=== PATIENT | male | born 1945 | race Caucasian/White ===

== ENCOUNTER → 2023-11-20 08:11 | Outpatient (REF) | payer OTHER, SELFPAY ==
[2023-11-20 10:14] LABS: % Basophils 0.2 % (0-2); % Eosinophils 2.3 % (0-6); % Lymphocytes 14.9 % (20.5-51.1); % Monocytes 12.5 % (1.7-9.3); % Neutrophils 70.1 % (42.2-75.2); Absolute Eosinophils 0.1 10^3/uL (0-0.7); Absolute Lymphocytes 0.7 10^3/uL (1.2-3.4); Absolute Monocytes 0.6 10^3/uL (0.1-0.6); Absolute Neutrophils 3.3 10^3/uL (1.4-6.5); Hematocrit 38.1 % (39.0-52.0); Hemoglobin 13.1 g/dL (13.0-18.0); Mean Corp Hgb Conc. 34.4 g/dL (33.0-37.0); Mean Corpuscular Hgb 30.8 pg (27.0-31.0); Mean Corpuscular Volume 89.6 fL (80.0-94.0); Mean Platelet Volume 10.4 fL (7.4-10.4); Nucleated Red Blood Cells % 0 % (-); Platelet Count 279 10^3/uL (130-400); Red Blood Cell Count 4.25 10^6/uL (4.70-6.10); Red Cell Dist. Width 12.3 % (11.5-14.5); White Blood Cell Count 4.7 10^3/uL (4.8-10.8)
[2023-11-20 10:24] LABS: ALT (SGPT) 31 U/L (0-50); AST (SGOT) 41 U/L (17-59); Albumin 4.7 g/dl (3.5-5.0); Alkaline Phosphatase 87 U/L (38-126); Blood Urea Nitrogen 12 mg/dl (9-20); Calcium 9.5 mg/dl (8.4-10.2); Carbon Dioxide 24 mmol/L (22-30); Chloride 103 mmol/L (98-107); Glucose 112 mg/dl (70-99); HDL Cholesterol 53 mg/dl; LDL Cholesterol, Calculated 77 mg/dl; Sodium 134 mmol/L (135-145); Total Bilirubin 1.1 mg/dl (0.2-1.3); Total Cholesterol 154 mg/dl (50-199); Total Protein 7.7 g/dl (6.3-8.2); Triglyceride 123 mg/dl (10-149); Very Low Density Lipoprotein 24 mg/dl (0-30); eGFR > 60.00
[2023-11-20 10:56] LABS: Urine Albumin Negative (Neg - Trace); Urine Bilirubin Negative (Negative); Urine Character Clear (Clear); Urine Color Yellow; Urine Glucose Negative (Negative); Urine Ketone Negative (Negative); Urine Leukocyte Negative (Negative); Urine Nitrite Negative (Negative); Urine Occult Blood Negative (Negative); Urine Specific Gravity 1.015 (<1.030); Urine Urobilinogen Negative (Neg - 1+)
== END ==
LOC: REG 08:11
PROVIDERS: ATTENDING PHYSICIAN Internal Medicine Geriatric Medicine
DX: M25.562 Pain in left knee (principal); M62.830 Muscle spasm of back; I10 Essential (primary) hypertension; E78.2 Mixed hyperlipidemia; K21.9 Gastro-esophageal reflux disease without esophagitis; R11.0 Nausea; J30.0 Vasomotor rhinitis; L30.9 Dermatitis, unspecified; Z20.822 Contact with and (suspected) exposure to COVID-19; Z13.31 Encounter for screening for depression
CPT/HCPCS: 36415; 80053; 80061; 81003; 85025

== ENCOUNTER → 2024-03-23 06:24 | Day surgery (SDC) | payer OTHER, SELFPAY | LOC: GI 06:24 | PROVIDERS: ATTENDING PHYSICIAN Internal Medicine Gastroenterology; FAMILY PHYSICIAN Internal Medicine Geriatric Medicine | DX: D12.0 Benign neoplasm of cecum (principal); K63.5 Polyp of colon; K57.30 Diverticulosis of large intestine without perforation or abscess without bleeding; K64.8 Other hemorrhoids; Z86.010 Personal history of colon polyps | CPT/HCPCS: 45385; 45380; 88305 ==

== ENCOUNTER → 2024-05-09 11:04 | Outpatient (REF) | payer OTHER, SELFPAY ==
[2024-05-09 12:38] LABS: PSA, Total - Diagnostic 4.88 ng/ml (0.0-4.0)
== END ==
LOC: REG 11:04
PROVIDERS: ATTENDING PHYSICIAN Specialist; FAMILY PHYSICIAN Internal Medicine Geriatric Medicine
DX: R97.20 Elevated prostate specific antigen [PSA] (principal)
CPT/HCPCS: 36415; 84153

== ENCOUNTER → 2024-11-30 08:44 | Outpatient (REF) | payer OTHER, SELFPAY ==
[2024-11-30 09:54] LABS: % Basophils 0.4 % (0-2); % Eosinophils 1.9 % (0-6); % Immature Granulocytes 0.4 % (0-0.5); % Monocytes 10.5 % (1.7-9.3); % Neutrophils 73.8 % (42.2-75.2); Absolute Eosinophils 0.1 10^3/uL (0-0.7); Absolute Lymphocytes 0.7 10^3/uL (1.2-3.4); Absolute Monocytes 0.6 10^3/uL (0.1-0.6); Absolute Neutrophils 4.2 10^3/uL (1.4-6.5); Hematocrit 37.6 % (39.0-52.0); Hemoglobin 12.8 g/dL (13.0-18.0); Mean Corpuscular Hgb 30.2 pg (27.0-31.0); Mean Corpuscular Volume 88.7 fL (80.0-94.0); Mean Platelet Volume 10.6 fL (7.4-10.4); Nucleated Red Blood Cells % 0 % (-); Platelet Count 284 10^3/uL (130-400); Red Blood Cell Count 4.24 10^6/uL (4.70-6.10); Red Cell Dist. Width 12.5 % (11.5-14.5); White Blood Cell Count 5.7 10^3/uL (4.8-10.8)
[2024-11-30 10:55] LABS: ALT (SGPT) 30 U/L (0-50); AST (SGOT) 37 U/L (17-59); Alkaline Phosphatase 79 U/L (38-126); Blood Urea Nitrogen 11 mg/dl (9-20); Calcium 9.5 mg/dl (8.4-10.2); Carbon Dioxide 24 mmol/L (22-30); Chloride 97 mmol/L (98-107); Glucose 110 mg/dl (70-99); HDL Cholesterol 52 mg/dl; LDL Cholesterol, Calculated 79 mg/dl; Potassium 4.4 mmol/L (3.5-5.1); Sodium 135 mmol/L (135-145); Total Bilirubin 1.2 mg/dl (0.2-1.3); Total Cholesterol 148 mg/dl (50-199); Total Protein 7.8 g/dl (6.3-8.2); Triglyceride 87 mg/dl (10-149); Very Low Density Lipoprotein 17 mg/dl (0-30); eGFR > 60.00
[2024-11-30 10:56] LABS: Urine Albumin Negative (Neg - Trace); Urine Bilirubin Negative (Negative); Urine Character Clear (Clear); Urine Color Yellow; Urine Glucose Negative (Negative); Urine Ketone Negative (Negative); Urine Leukocyte Negative (Negative); Urine Nitrite Negative (Negative); Urine Occult Blood Negative (Negative); Urine Specific Gravity 1.015 (<1.030); Urine Urobilinogen Negative (Neg - 1+)
[2024-11-30 11:06] LABS: Vitamin D, 25-OH*** 36.3 ng/mL (30-80)
[2024-11-30 11:19] LABS: PSA, Total - Screen 5.06 ng/ml (0.0-4.0); TSH 2.72 uIU/ml (0.47-4.68)
== END ==
LOC: REG 08:44
PROVIDERS: ATTENDING PHYSICIAN Internal Medicine Geriatric Medicine
DX: E78.2 Mixed hyperlipidemia (principal); I10 Essential (primary) hypertension; R97.20 Elevated prostate specific antigen [PSA]; N40.1 Benign prostatic hyperplasia with lower urinary tract symptoms; Z79.899 Other long term (current) drug therapy; Z00.00 Encounter for general adult medical examination without abnormal findings
CPT/HCPCS: 36415; 80053; 80061; 81003; 82306; 84443; 85025; G0103

== ENCOUNTER → 2025-06-13 14:30 | Outpatient (REF) | payer OTHER, SELFPAY ==
[2025-06-13 15:49] LABS: Urine Character Cloudy (Clear)
[2025-06-13 16:30] LABS: Urine Squamous Cell 0-2 /LPF (Few)
[2025-06-13 16:31] LABS: Urine White Cell 60-70 /HPF (0-5)
== END ==
LOC: REG 14:30
PROVIDERS: ATTENDING PHYSICIAN Specialist; FAMILY PHYSICIAN Internal Medicine Geriatric Medicine
DX: R30.0 Dysuria (principal)
CPT/HCPCS: 81003; 81015; 87077; 87086; 87186

== ENCOUNTER 2025-06-16 12:50 | Emergency (ER) | payer OTHER, SELFPAY ==
[2025-06-16 12:53] VITALS: BP 170/100
[2025-06-16 13:19] LABS: Hematocrit 32.8 % (39.0-52.0); Hemoglobin 11.6 g/dL (13.0-18.0); Mean Corp Hgb Conc. 35.4 g/dL (33.0-37.0); Mean Corpuscular Volume 85.6 fL (80.0-94.0); Nucleated Red Blood Cells % 0 % (-); Platelet Count 285 10^3/uL (130-400); Red Cell Dist. Width 12.1 % (11.5-14.5)
[2025-06-16 13:34] LABS: ALT (SGPT) 25 U/L (0-50); AST (SGOT) 32 U/L (17-59); Albumin 4.7 g/dl (3.5-5.0); Alkaline Phosphatase 60 U/L (38-126); Blood Urea Nitrogen 11 mg/dl (9-20); Calcium 9.3 mg/dl (8.4-10.2); Carbon Dioxide 23 mmol/L (22-30); Chloride 100 mmol/L (98-107); Glucose 110 mg/dl (70-99); Potassium 4.3 mmol/L (3.5-5.1); Sodium 130 mmol/L (135-145); Total Protein 7.7 g/dl (6.3-8.2); eGFR > 60.00
[2025-06-16 13:46] LABS: Troponin I < 0.012 ng/ml
[2025-06-16 14:10] LABS: TSH 2.23 uIU/ml (0.47-4.68)
[2025-06-16 16:09] VITALS: BP 162/91
--- NOTE | 2025-06-16 16:20 | ED.GENMED ---
History of Present Illness
General
Chief Complaint: Heart Rate Problem
Time Seen by Provider: 06/16/25 16:02
History of Present Illness
History of Present Illness:
80-year-old male presents to the emergency department for evaluation of occasional palpitations and irregular heartbeats for the past 2 days. He began taking Cipro for a UTI earlier in the week, was prescribed 500 mg twice daily by his urologist.
He states the symptoms are seemingly unprovoked, began this morning while he was seated at his dining room table. Denies any associated chest pain or dyspnea. No fevers or chills.
Past History
Past History
ED Past Medical History: GERD, HTN, Hypercholesterolemia, Other (Osteoarthritis, BPH, spinal stenosis, right upper lobe lung abscess 2009) and Other (anemia, diverticulosis)
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
Social History
Tobacco: Former smoker (Quit 2006)
Alcohol: Occasional
Personal:
Living: alone
Employment: Retired
Family History
Family History: Diabetes and CAD
Review of Systems
Review of Systems
Allergies reviewed?: Yes
All Other Systems: ROS reviewed and negative except as documented in HPI and ROS
Phy Exam
Physical Exam
Physical Exam:
GEN: Well appearing, NAD, WDWN
HEENT: Oral mucosa moist, no scleral icterus
Cardiac: Regular rate
Lung: No respiratory distress, no tachypnea
MSK: No gross deformity or injuries
Skin: Good color, no pallor or jaundice, no rashes
Neuro: AO x3, moves all extremities freely
Psych: Calm, cooperative
Course
Orders/Labs/Results
Orders:
Orders
06/16/25 12:56
Electrocardiogram (*1) Urgent
Reason for Study: Chest Pain
06/16/25 12:57
EKG- Treatment ONCE
06/16/25 13:07
Complete Blood Count/With Diff Urgent
Comprehensive Metabolic Panel Urgent
Magnesium Urgent
Comment: ADD ON
TSH Urgent
Troponin I Urgent
06/16/25 16:20
Add On- LAB Urgent
Tests Added?: magnesium
06/16/25 17:53
Cephalexin Monohydrate [Keflex] 1,000 mg PO NOW STA
Abnormal Lab Results
06/16/25
13:07
RBC 3.83 L 10^6/uL
(4.70-6.10)
Hgb 11.6 L g/dL
(13.0-18.0)
Hct 32.8 L %
(39.0-52.0)
Absolute Lymphs (auto) 0.6 L 10^3/uL
(1.2-3.4)
Lymphocytes % 11.8 L %
(20.5-51.1)
Monocytes % 10.8 H %
(1.7-9.3)
Sodium 130 L mmol/L
(135-145)
Creatinine 0.6 L mg/dL
(0.7-1.3)
Glucose 110 H mg/dl
(70-99)
06/16/25 13:07
06/16/25 13:07
Vital Signs
Initial and Last Documented VS:
Initial Vital Signs
Temp Pulse Resp BP Pulse Ox
97.8 F 82 18 170/100 96
06/16/25 12:53 06/16/25 12:53 06/16/25 12:53 06/16/25 12:53 06/16/25 12:53
Last Documented Vital Signs
Temp Pulse Resp BP Pulse Ox
97.8 F 70 21 167/86 95
06/16/25 12:53 06/16/25 17:30 06/16/25 17:30 06/16/25 17:00 06/16/25 17:30
MDM/Problems Addressed
MDM/Problems Addressed:
No detectable cardiac dysrhythmias while in the emergency department, QT interval is normal thus I do not have a suspicion for lethal ventricular arrhythmias from QT prolongation in the setting of Cipro use. Nevertheless the patient is concerned
about his symptoms and is apprehensive about taking further Cipro thus we will switch to cephalexin based on prior culture report, options are limited given the patient's penicillin allergy and use of an ARB making Bactrim high risk for causing
hyperkalemia
Comment
Comment:
EKG independently interpreted by me shows normal sinus rhythm with no ST changes concerning for ischemia, QTc interval is 435
*Pulse Oximetry
SaO2: 95
Oxygen Mode of Delivery: Room air
Patient hypoxic: no
*Critical Care Note
Total Time (30-74mins, 75-104mins- exclusive of procedures): Not Applicable
ED Attending Note
-
Portions of this chart may have been created with voice recognition software.� Occasional wrong word or��sound alike� substitutions may have occurred due to the inherent limitations of voice recognition software.
Discharge Plan
Departure
Patient Disposition: Home (Routine Discharge)
Date of Disposition: 06/16/25
Time of Disposition: 17:52
Patient with high blood pressure during this ER visit?: No
Discharge Problem:
Heart palpitations
Instructions: Palpitations (DC)
Prescriptions:
New
cephalexin 500 mg capsule
500 mg PO BID 6 Days Qty: 12 0RF
No Action
pantoprazole 40 MG tablet,delayed release (DR/EC)
40 mg PO BID
lovastatin 20 MG tablet
20 mg PO DAILY
Centrum Silver Men 1 EACH tablet
1 ea PO DAILY
fexofenadine 180 mg Tablet
180 mg PO DAILY PRN (Reason: allergies)
dutasteride-tamsulosin 0.5-0.4 mg Capsule, Er Multiphase 24 Hr
1 cap PO DAILY
mupirocin 2 % ointment
1 applic topical BID Qty: 1 0RF
Patient Comments:
patient applied to b/l nares 07/30/22 0600, has been applying bid to b/l nares since 07/27/22
aspirin 325 mg Tablet,Delayed Release (Dr/Ec)
325 mg PO DAILY Qty: 28 0RF
Rx Instructions:
Take daily x4 weeks for blood clot prevention.
docusate sodium 100 mg Capsule
100 mg PO BID Qty: 30 0RF
meloxicam 15 mg Tablet
15 mg PO DAILY Qty: 14 0RF
Rx Instructions:
Take daily with food.
Do not take within 2 hours of Aspirin post-surgery.
sennosides [senna] 8.6 mg Tablet
17.2 mg PO BID Qty: 30 0RF
tramadol 50 mg tablet
50 mg PO Q6H PRN (Reason: moderate-severe pain) Qty: 30 0RF
Rx Instructions:
1 tab for moderate pain, 2 if severe.
Dx total joint. Ongoing therapy.
ondansetron HCl 4 mg tablet
4 mg PO Q6H PRN (Reason: nausea and vomiting) Qty: 20 0RF
Rx Instructions:
Take 1/2 hour prior to Tramadol if experiencing recurrent nausea.
baclofen 10 mg tablet
10 mg PO HS PRN (Reason: muscle spasms) Qty: 7 0RF
Rx Instructions:
Caution with Tramadol - can cause drowsiness.
acetaminophen 650 mg Tablet Extended Release
650 mg PO Q4H Qty: 30 0RF
Rx Instructions:
DO NOT exceed >4000 mg daily.
irbesartan 150 mg Tablet
37.5 - 50 mg PO HS Qty: 1 0RF
Rx Instructions:
PT TAKES 1/2-1/3 OF TABLET NIGHTLY
HOLD if systolic blood pressure <130 while on Tramadol.
Activity Restrictions/Additional Instructions:
Stop the cipro
Interventions
Interventions:
*Risk Screen - Suicide Last Done: 06/16/25 12:53
*General Assessment Last Done: 06/16/25 12:53
*Neglect/Abuse Screening Last Done: 06/16/25 18:05
*ED- Fall Risk Assessment Last Done: 06/16/25 18:05
*ED COVID-19 Vaccine History Last Done: 06/16/25 12:53
*Nursing Disposition Last Done: 06/16/25 18:03
ED- Cardiac Assessment Last Done: 06/16/25 16:39
ED- Pulmonary Assessment Last Done: 06/16/25 16:39
Discharge Date and Time
Print Language: TELUGU
[2025-06-16 16:38] VITALS: BMI 33.2
[2025-06-16 17:00] VITALS: BP 167/86
[2025-06-16 17:22] LABS: Magnesium 1.8 mg/dl (1.6-2.3)
[2025-06-16] MEDS: KEFLEX 1000 MG PO (17:59)
== END 2025-06-16 18:03 | disposition home or self-care (01) ==
LOC: EMR 12:50
PROVIDERS: Emergency Medicine; EMERGENCY PHYSICIAN Emergency Medicine
DX: R00.2 Palpitations (principal); I49.9 Cardiac arrhythmia, unspecified; K21.9 Gastro-esophageal reflux disease without esophagitis; I10 Essential (primary) hypertension; E78.00 Pure hypercholesterolemia, unspecified; M19.90 Unspecified osteoarthritis, unspecified site; N40.0 Benign prostatic hyperplasia without lower urinary tract symptoms; Z82.49 Family history of ischemic heart disease and other diseases of the circulatory system; Z83.3 Family history of diabetes mellitus; Z87.440 Personal history of urinary (tract) infections; Z87.891 Personal history of nicotine dependence; Z88.0 Allergy status to penicillin; Z96.642 Presence of left artificial hip joint; Z96.651 Presence of right artificial knee joint
CPT/HCPCS: 99283; 80053; 83735; 84443; 84484; 85025; 93005

== ENCOUNTER → 2025-06-25 17:04 | Outpatient (REF) | payer OTHER, SELFPAY ==
[2025-06-25 17:50] LABS: Urine Character Cloudy (Clear)
[2025-06-25 18:12] LABS: Urine Squamous Cell 0-2 /LPF (Few)
[2025-06-25 18:13] LABS: Urine White Cell 50-60 /HPF (0-5)
== END ==
LOC: REG 17:04
PROVIDERS: ATTENDING PHYSICIAN Specialist; FAMILY PHYSICIAN Internal Medicine Geriatric Medicine
DX: N30.20 Other chronic cystitis without hematuria (principal)
CPT/HCPCS: 81003; 81015; 87077; 87086; 87186

== ENCOUNTER → 2025-07-02 10:53 | Outpatient (REF) | payer OTHER, SELFPAY | LOC: HWRAD 10:53 | PROVIDERS: ATTENDING PHYSICIAN Specialist; FAMILY PHYSICIAN Internal Medicine Geriatric Medicine | DX: N30.00 Acute cystitis without hematuria (principal) | CPT/HCPCS: 74176 ==

== ENCOUNTER 2025-07-23 20:46 | Inpatient (IN) | payer OTHER, SELFPAY ==
[2025-07-23 14:06] VITALS: BP 162/84
[2025-07-23 16:20] LABS: Urine Character Clear (Clear)
[2025-07-23 16:41] LABS: Urine Squamous Cell 16-20 /LPF (Few)
[2025-07-23 16:43] LABS: Urine Red Blood Cell 0-2 /HPF (0-2); Urine White Cell 0-2 /HPF (0-5)
--- NOTE | 2025-07-23 17:27 | ED.GENMED ---
History of Present Illness
<ESMER Cummings Jr. Last Filed: 07/23/25 19:55>
General
Chief Complaint: Dizziness
Source: patient and family
Exam Limitations: none
Time Seen by Provider: 07/23/25 17:11
Nursing documentation reviewed up to this point in time: agreed with
History of Present Illness
History of Present Illness:
80-year-old male presenting to the emergency department today with concerns of lightheadedness. He claims that he has been battling with a UTI over the past month. He was on 3 different antibiotics and is currently on Methenamine, was previously
on ciprofloxacin and Bactrim. Today he had an episode where he felt lightheaded and has felt generally weak and tired. He does note to have drank a large amount of water recently concerned that he could be dehydrated.
Past History
<ESMER Cummings Jr. Last Filed: 07/23/25 19:55>
Past History
ED Past Medical History: GERD, HTN, Hypercholesterolemia, Other (Osteoarthritis, BPH, spinal stenosis, right upper lobe lung abscess 2009) and Other (anemia, diverticulosis)
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
Social History
Tobacco: Former smoker (Quit 2006)
Alcohol: Occasional
Personal:
Living: alone
Employment: Retired
Family History
Family History: Diabetes and CAD
Review of Systems
<ESMER Cummings Jr. Last Filed: 07/23/25 19:55>
Review of Systems
Allergies reviewed?: Yes
All Other Systems: ROS reviewed and negative except as documented in HPI and ROS
Phy Exam
<ESMER Cummings Jr. Last Filed: 07/23/25 19:55>
Physical Exam
Physical Exam:
GENERAL: Alert , in no apparent distress
EYE: pupils equal and reactive
NECK: Supple, no significant adenopathy.
ENT: o/p clr, mmm.
CARDIAC: Regular rate and rhythm .
LUNGS: Clear breath sounds bilaterally, no acute respiratory distress, no wheezes/rales/rhonchi
ABDOMEN: Soft, without focal tenderness, no r/g, no cvat
NEUROLOGICAL: Alert and oriented, no focal neuro deficits
SKIN: Warm and dry, skin intact.
MUSCULOSKELETAL: No edema, well perfused.
PSYCH: Normal and appropriate interaction.
Course
<Blair Butler Jr., PA-C - Last Filed: 07/23/25 19:55>
Orders/Labs/Results
Orders:
Orders
07/23/25 14:09
Electrocardiogram (*1) Urgent
Reason for Study: Vertigo / Dizzy
EKG- Treatment ONCE
07/23/25 16:09
Urinalysis Reflex To Culture Urgent
Date Specimen was Collected: 07/23/25
Time Specimen was Collected: 14:09
Urine Microscopic Reflex Cult Urgent
Urine Culture Urgent
YARELI Source: U
Specimen Description:
Date Specimen was Collected: 07/23/25
Time Specimen was Collected: 14:09
07/23/25 18:10
Complete Blood Count/With Diff Urgent
TSH Reflex To Free T4 Urgent
07/23/25 19:15
Comprehensive Metabolic Panel Urgent
Lipase Urgent
Abnormal Lab Results
07/23/25 07/23/25 07/23/25
16:09 18:10 19:15
RBC 3.67 L 10^6/uL
(4.70-6.10)
Hgb 11.0 L g/dL
(13.0-18.0)
Hct 31.1 L %
(39.0-52.0)
MPV 10.5 H fL
(7.4-10.4)
Absolute Lymphs (auto) 0.9 L 10^3/uL
(1.2-3.4)
Absolute Monos (auto) 0.7 H 10^3/uL
(0.1-0.6)
Neutrophils % 75.3 H %
(42.2-75.2)
Lymphocytes % 12.9 L %
(20.5-51.1)
Monocytes % 10.2 H %
(1.7-9.3)
Sodium 123 L mmol/L
(135-145)
Chloride 90 L mmol/L
(98-107)
Creatinine 0.5 L mg/dL
(0.7-1.3)
Glucose 101 H mg/dl
(70-99)
Urine Bacteria (Reflex) Moderate A
(Negative)
Urine Albumin (Reflex) 1+ A
(Neg - Trace)
07/23/25 18:10
07/23/25 19:15
Vital Signs
Initial and Last Documented VS:
Initial Vital Signs
Temp Pulse Resp BP Pulse Ox
97.7 F 74 18 162/84 96
07/23/25 14:06 07/23/25 14:06 07/23/25 14:06 07/23/25 14:06 07/23/25 14:06
Last Documented Vital Signs
Temp Pulse Resp BP Pulse Ox
97.7 F 64 24 154/74 96
07/23/25 14:06 07/23/25 18:06 07/23/25 18:06 07/23/25 18:06 07/23/25 17:32
<Nik Tavarez, DO - Last Filed: 07/23/25 19:51>
Orders/Labs/Results
Orders:
Orders
07/23/25 14:09
Electrocardiogram (*1) Urgent
Reason for Study: Vertigo / Dizzy
EKG- Treatment ONCE
07/23/25 16:09
Urinalysis Reflex To Culture Urgent
Date Specimen was Collected: 07/23/25
Time Specimen was Collected: 14:09
Urine Microscopic Reflex Cult Urgent
Urine Culture Urgent
YARELI Source: U
Specimen Description:
Date Specimen was Collected: 07/23/25
Time Specimen was Collected: 14:09
07/23/25 18:10
Complete Blood Count/With Diff Urgent
TSH Reflex To Free T4 Urgent
07/23/25 19:15
Comprehensive Metabolic Panel Urgent
Lipase Urgent
Abnormal Lab Results
07/23/25 07/23/25 07/23/25
16:09 18:10 19:15
RBC 3.67 L 10^6/uL
(4.70-6.10)
Hgb 11.0 L g/dL
(13.0-18.0)
Hct 31.1 L %
(39.0-52.0)
MPV 10.5 H fL
(7.4-10.4)
Absolute Lymphs (auto) 0.9 L 10^3/uL
(1.2-3.4)
Absolute Monos (auto) 0.7 H 10^3/uL
(0.1-0.6)
Neutrophils % 75.3 H %
(42.2-75.2)
Lymphocytes % 12.9 L %
(20.5-51.1)
Monocytes % 10.2 H %
(1.7-9.3)
Sodium 123 L mmol/L
(135-145)
Chloride 90 L mmol/L
(98-107)
Creatinine 0.5 L mg/dL
(0.7-1.3)
Glucose 101 H mg/dl
(70-99)
Urine Bacteria (Reflex) Moderate A
(Negative)
Urine Albumin (Reflex) 1+ A
(Neg - Trace)
07/23/25 18:10
07/23/25 19:15
Vital Signs
Initial and Last Documented VS:
Initial Vital Signs
Temp Pulse Resp BP Pulse Ox
97.7 F 74 18 162/84 96
07/23/25 14:06 07/23/25 14:06 07/23/25 14:06 07/23/25 14:06 07/23/25 14:06
Last Documented Vital Signs
Temp Pulse Resp BP Pulse Ox
97.7 F 64 24 154/74 96
07/23/25 14:06 07/23/25 18:06 07/23/25 18:06 07/23/25 18:06 07/23/25 17:32
<Blair Butler Jr., PA-C - Last Filed: 07/23/25 19:55>
MDM/Problems Addressed
MDM/Problems Addressed:
81-year-old male presenting to the emergency department today with concerns of lightheadedness generalized weakness. He was concerned that he could be dehydrated recently and has been drinking large amount of water. Also recently has been treated
for UTI multiple times in the last month. Here vital signs are normal on arrival patient no obvious distress. Sodium level is 123 and chloride level of 90. Patient with potential symptomatic hyponatremia. Plan to admit for monitoring and
reassessment.
<Blair Butler Jr., PA-C - Last Filed: 07/23/25 19:55>
*Pulse Oximetry
SaO2: 96
Oxygen Mode of Delivery: Room air
Patient hypoxic: no (96)
*Critical Care Note
Total Time (30-74mins, 75-104mins- exclusive of procedures): Not Applicable
ED Attending Note
<Blair Butler Jr., PA-C - Last Filed: 07/23/25 19:55>
-
Portions of this chart may have been created with voice recognition software.� Occasional wrong word or��sound alike� substitutions may have occurred due to the inherent limitations of voice recognition software.
<Nik Tavarez, DO - Last Filed: 07/23/25 19:51>
ED Attending Note
Patient seen and examined by attending physician: Yes
I performed the substantive portion of visit, reviewed & personally made and approve the management plan that is documented in note by myself or SARAH.: Yes
ED Attending Note:
I have seen and evaluated the patient with a [id number] encounter. I have spoken to the advance practicer provider and involved in the medical history, the physical exam, medical decision making.
Evaluation and management service: agree unless noted differently below.
Results interpretation: agree unless noted differently below.
Focused HPI: 80-year-old male presenting with generalized weakness and fatigue. Patient does acknowledge that he thought he could be dehydrated so he has been drinking significant amounts of water
Physical exam: Sitting in bed comfortably. No acute distress. Moist mucous membranes
Medical Decision Making: Patient found to have hyponatremia which could be the cause of his symptoms. Patient will likely need some sort of water restriction. Will admit for further evaluation given that he is somewhat subdued
Discharge Plan
Departure
Patient Disposition: Admit
Date of Disposition: 07/23/25
Time of Disposition: 19:54
Admit to: Med/Surg
Admit to doctor: Eddie
Presentation/result/management discussed w/ accepting MD/DO: Hospitalist
Patient with high blood pressure during this ER visit?: No
Condition: Good
Covid-19: Not Applicable
Discharge Problem:
Acute hyponatremia
Prescriptions:
No Action
pantoprazole 40 MG tablet,delayed release (DR/EC)
40 mg PO BID
lovastatin 20 MG tablet
20 mg PO DAILY
Centrum Silver Men 1 EACH tablet
1 ea PO DAILY
fexofenadine 180 mg Tablet
180 mg PO DAILY PRN (Reason: allergies)
dutasteride-tamsulosin 0.5-0.4 mg Capsule, Er Multiphase 24 Hr
1 cap PO DAILY
mupirocin 2 % ointment
1 applic topical BID Qty: 1 0RF
Patient Comments:
patient applied to b/l nares 07/30/22 0600, has been applying bid to b/l nares since 07/27/22
aspirin 325 mg Tablet,Delayed Release (Dr/Ec)
325 mg PO DAILY Qty: 28 0RF
Rx Instructions:
Take daily x4 weeks for blood clot prevention.
docusate sodium 100 mg Capsule
100 mg PO BID Qty: 30 0RF
meloxicam 15 mg Tablet
15 mg PO DAILY Qty: 14 0RF
Rx Instructions:
Take daily with food.
Do not take within 2 hours of Aspirin post-surgery.
sennosides [senna] 8.6 mg Tablet
17.2 mg PO BID Qty: 30 0RF
tramadol 50 mg tablet
50 mg PO Q6H PRN (Reason: moderate-severe pain) Qty: 30 0RF
Rx Instructions:
1 tab for moderate pain, 2 if severe.
Dx total joint. Ongoing therapy.
ondansetron HCl 4 mg tablet
4 mg PO Q6H PRN (Reason: nausea and vomiting) Qty: 20 0RF
Rx Instructions:
Take 1/2 hour prior to Tramadol if experiencing recurrent nausea.
baclofen 10 mg tablet
10 mg PO HS PRN (Reason: muscle spasms) Qty: 7 0RF
Rx Instructions:
Caution with Tramadol - can cause drowsiness.
acetaminophen 650 mg Tablet Extended Release
650 mg PO Q4H Qty: 30 0RF
Rx Instructions:
DO NOT exceed >4000 mg daily.
irbesartan 150 mg Tablet
37.5 - 50 mg PO HS Qty: 1 0RF
Rx Instructions:
PT TAKES 1/2-1/3 OF TABLET NIGHTLY
HOLD if systolic blood pressure <130 while on Tramadol.
cephalexin 500 mg capsule
500 mg PO BID 6 Days Qty: 12 0RF
Referrals:
Bladimir Dickson MD [Family Provider, Internal Medicine]
Interventions
Interventions:
*Risk Screen - Suicide Last Done: 07/23/25 14:06
*General Assessment Last Done: 07/23/25 14:06
*ED- Fall Risk Assessment Last Done: 07/23/25 18:07
*ED COVID-19 Vaccine History Last Done: 07/23/25 18:07
*ED Influenza Vaccine History Last Done: 07/23/25 18:07
ED- Neurological Assessment Last Done: 07/23/25 18:07
ED- Cardiac Assessment Last Done: 07/23/25 18:07
ED Swallowing Screen Last Done: 07/23/25 18:07
Discharge Date and Time
Print Language: HEBREW
[2025-07-23 17:52] VITALS: BMI 33.3
[2025-07-23 17:54] VITALS: BP 158/75
[2025-07-23 18:06] VITALS: BP 154/74
[2025-07-23 18:31] LABS: Hematocrit 31.1 % (39.0-52.0); Hemoglobin 11.0 g/dL (13.0-18.0); Mean Corp Hgb Conc. 35.4 g/dL (33.0-37.0); Mean Corpuscular Volume 84.7 fL (80.0-94.0); Nucleated Red Blood Cells % 0 % (-); Red Cell Dist. Width 11.9 % (11.5-14.5)
[2025-07-23 19:17] LABS: Platelet Count 229 10^3/uL (130-400)
[2025-07-23 19:39] LABS: ALT (SGPT) 35 U/L (0-50); AST (SGOT) 41 U/L (17-59); Albumin 4.7 g/dl (3.5-5.0); Alkaline Phosphatase 64 U/L (38-126); Blood Urea Nitrogen 9 mg/dl (9-20); Calcium 9.6 mg/dl (8.4-10.2); Carbon Dioxide 28 mmol/L (22-30); Chloride 90 mmol/L (98-107); Estimated Creatinine Clearance 112 ml/min; Glucose 101 mg/dl (70-99); Lipase 193 U/L (23-300); Potassium 4.5 mmol/L (3.5-5.1); Sodium 123 mmol/L (135-145); Total Protein 7.8 g/dl (6.3-8.2); eGFR > 60.00
--- NOTE | 2025-07-23 19:56 | HPS.HSE ---
Addendum entered and electronically signed by Alberto Chan MD 07/23/25 21:38:
This is an addendum to H&P written by Nicole Connell on 07/23/2025. �Patient seen and examined independently with [employer].
80-year-old male past medical history of advanced primary osteoarthritis of left knee status post total knee arthroplasty, hypertension, GERD, BPH, hyperlipidemia, chronic anemia presenting with lightheadedness, fatigue and weakness and feeling off
balance. �He has been suffering with UTI for the past month and has been on 3 different antibiotic which he completed 3 days ago and was placed on hippurate. �He feels fatigue and tired. �He was drinking significant amount of fluids while on the
antibiotic up to 64 ounces per day but 3 days ago he he has been back to drinking less with decreased urine output.
He has some residual urinary pressure.
He did have loose stools while on the antibiotic and yesterday he had more significant watery diarrhea. �No diarrhea today.
Vital signs show blood pressure 162/84. �Sodium 123 from 130 previously. �Hemoglobin stable at 11.
Urinalysis appears clear.
Patient with symptomatic worsening of chronic hyponatremia secondary to likely polydipsia.
Check urine sodium, osmolality, TSH. �Fluid restriction 40 ounces. �Check orthostatic vital signs. �If no improvement with fluid restriction, will require hypertonic saline.
Original Note:
Family Physician
-
Family Physician: Bladimir Dickson
Chief Complaint
-
lightheaded
off balance.
History of Present Illness
80-year-old male with PMH for GERD, HTN, HLD, BPH, spinal stenosis, lung abscess presenting to the emergency department today with concerns of lightheadedness for past few days. he felt weak, tired and off balance. he finished the course of Bactrim
on 07/18 and started methenamine on 07/19. since then, he stools were loose. he had an episode of diarrhea as well. he is still with pressure while urinating. he was drinking drinking 64oz of water while taking abx but for past 3 days he cut down on
how much he was drinking and using the table salt. denied CASAS, or syncope. denied blurry vision, numbness and tingling. denied fever, chills, cough, congestion, chest pain, sob. denied abdominal pain,n,v. denied dysuria or hematuria.
upon arrival he was noted hyponatremia. admitting for further management.
Medical History
Past Medical History
Past Medical History: Reports Other
Additional Past Medical History:
HTN
stomach ulcer
spinal stenosis
arthirtis
BPH
gallstone pancratitis
Past Surgical History: Reports Other
Additional Past Surgical History:
gastrotomy
hernia repair
left knee replacement
cataract extraction
cholecystectomy
right knee replacement
Social History
Tobacco: Former Smoker
Alcohol: Occasional
Drug: None
Family History
Family History: Not pertinent
Allergies / Home Medications
Allergies reflects when Allergies were last updated in [facility].
Home Medications with original date entered in [facility]
Allergy/Medication List:
Allergies
Allergy/AdvReac Type Severity Reaction Status Date / Time
aspirin (From [employer]) Allergy PREFERS Verified 07/23/25 14:08
HIM TO NOT
TAKE DUE
TO GI
ISSUES
carisoprodol Allergy PASSED OUT Verified 07/23/25 14:08
chlorzoxazone Allergy PASSED OUT Verified 07/23/25 14:08
Penicillins Allergy Rash Verified 07/23/25 14:08
sulfite Allergy Unknown Verified 07/23/25 14:08
Home Medications
lovastatin 20 mg tablet 20 mg PO DAILY High cholesterol 03/17/14
pantoprazole 40 mg tablet,delayed release 40 mg PO BID Gastrointestinal issue 03/17/14
dutasteride 0.5 mg-tamsulosin ER 0.4 mg capsule ext.release 24hr mphas 1 cap PO DAILY Urinary issue 07/10/22
irbesartan 150 mg tablet 37.5 - 50 mg (0.25 - 0.3333 x 150 mg) PO HS Blood pressure #1 tab 07/31/22
sennosides 8.6 mg tablet (senna) 17.2 mg (2 x 8.6 mg) PO BID #30 tabs 07/31/22
Review of Systems
-
Constitutional: Reports No Symptoms
EENT: Reports No Symptoms
Respiratory: Reports No Symptoms
Cardiac: Reports No Symptoms
Abdomen/GI: Reports No Symptoms
: Reports No Symptoms
Musculoskeletal: Reports No Symptoms
Skin: Reports No Symptoms
Neurological: Reports Dizzy and Weakness
Endocrine: Reports No Symptoms
Hematologic/Lymphatic: Reports No Symptoms
Psych: Reports No Symptoms
Physical Exam
Vital Signs
Vital Signs
Temp Pulse Resp BP Pulse Ox
97.7 F 64 24 154/74 96
07/23/25 14:06 07/23/25 18:06 07/23/25 18:06 07/23/25 18:06 07/23/25 17:32
Physical Exam
General: Well Developed, Well Nourished and No Apparent Distress
HEENT: NormoCephalic, Moist mucous membranes and Atraumatic
Respiratory: Clear
Cardiac: S1/S2 and Regular Rhythm; No Murmur or Rub
GI: Soft, Non Tender, Non Distended and Normal Bowel Sounds; No Organomegaly
Rectal: Deferred by Provider
Musculoskeletal: No Clubbing, No Cyanosis and No Edema
Skin: No Rash
Neuro: AO x 3 and Nonfocal/grossly intact
Psych: Calm
Laboratory Results
-
07/23/25 18:10
07/23/25 19:15
Laboratory Results
Total Bilirubin 1.1 mg/dl (0.2-1.3) 07/23/25 19:15
AST 41 U/L (17-59) 07/23/25 19:15
ALT 35 U/L (0-50) 07/23/25 19:15
Alkaline Phosphatase 64 U/L (38-126) 07/23/25 19:15
Lipase 193 U/L (23-300) 07/23/25 19:15
Data Reviewed
-
Lab Data: Labs Reviewed by me
Impression/Plan
-
#symptomatic hyponatremia likely due to excessively fluid intake
-na 123
-fluid restriction
-obtain Urine for na, osmolality, serum osmolality
-BMP in am
-TSH with t4 in am
-orthosatics, PT/OT consult
#anemia of chronic disease
-hgb stable at 11.0, no active bleeding
-ctm
# Benign prostatic hypertrophy
-Continue dutasteride Flomax.
#Gastroesophageal reflux disease. Continue PPI.
# Essential hypertension
-BP stable, antihypertensive continued
# Hyperlipidemia.
-statin continued
# Ex-smoker.
# DVT prophylaxis
-lovenox
#FULL CODE
[2025-07-23 20:00] VITALS: BP 160/93
[2025-07-23 21:30] VITALS: BP 159/76; BMI 33.5
[2025-07-23] MEDS: AVAPRO 150 MG PO (22:56)
[2025-07-23] MEDS: HIPREX 1 GRAM PO (22:56)
[2025-07-23] MEDS: NEURONTIN 100 MG PO (22:56)
[2025-07-23] MEDS: MELATONIN 5 MG PO (22:57)
[2025-07-23] MEDS: TYLENOL 650 MG PO (22:58)
[2025-07-23 23:00] VITALS: BP 145/68
--- NOTE | 2025-07-24 01:13 | TRANSFER ---
Pt transferred to 3W from ED via wheelchair. Pt stood, and walked to hospital bed with single point cane from home. Pt AAOx3, oriented to room, call sebastian within reach, plan of care ongoing.
[2025-07-24 05:43] LABS: Hematocrit 30.3 % (39.0-52.0); Hemoglobin 10.5 g/dL (13.0-18.0); Mean Corp Hgb Conc. 34.7 g/dL (33.0-37.0); Mean Corpuscular Volume 85.4 fL (80.0-94.0); Platelet Count 339 10^3/uL (130-400); Red Cell Dist. Width 11.8 % (11.5-14.5)
[2025-07-24 06:02] LABS: Blood Urea Nitrogen 9 mg/dl (9-20); Calcium 9.3 mg/dl (8.4-10.2); Carbon Dioxide 23 mmol/L (22-30); Chloride 92 mmol/L (98-107); Estimated Creatinine Clearance 109 ml/min; Glucose 86 mg/dl (70-99); Potassium 4.3 mmol/L (3.5-5.1); Sodium 124 mmol/L (135-145); eGFR > 60.00
[2025-07-24 07:00] VITALS: BP 150/66
--- NOTE | 2025-07-24 07:34 | W.PN.HOSP.TC ---
Addendum entered and electronically signed by Murray Simon MD 07/24/25 16:45:
80-year-old with lightheadedness fatigue and weakness and off balance
CVS: S1-S2 normal
Chest: CTA B/L
Abdomen: Soft, NT / Bowel sounds present
Extremities: No edema, normal pulses
# Symptomatic hyponatremia
Likely secondary to excessive fluid intake
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
3% saline as symptomatic
Normal TSH
Also bladder scan noted urine retention which could have contributed.
# Chronic anemia-hemoglobin to be monitored
# Hypertension-on irbesartan as outpatient. BP is on the low side.
# Hyperlipidemia-continue statin
# GERD/hiatal hernia-continue PPI
# Scoliosis/spinal stenosis/osteoarthritis-continue gabapentin
# Diverticulosis
# Enlarged prostate-continue dutasteride/tamsulosin. Bladder scan and straight cath
# Anxiety on lorazepam 0.5 mg 3 times daily as needed for anxiety as outpatient. May need to be slowly weaned
# History of GIST tumor surgery 2006
# Ex-smoker
# DVT prophylaxis-Lovenox
# CODE STATUS-full code
Part of this note was created using voice recognition system. Occasional wrong word or��sound alike� substitutions may have inadvertently occurred due to the inherent limitations of voice recognition software. If noted kindly bring it to my
attention for correction.
Original Note:
Today's Communication/Plan
-
3% NS 250mL infusion
Repeat BMP following infusion
Added pyridium, IV hydralazine
Assessment / Plan
Assessment / Plan
Assessment:
This is an 80 y/o male with pmhx of UTI on multiple antibiotic therapies who
Plan:
Symptomatic Hyponatremia
-Sodium 123 on admission, 124 today
-Likely 2/2 to excessive fluid intake
-Serum osmolality: 260
-Urine osmolality: 472
-Urine sodium: 89
-Continue fluid restriction
-ORDERED Pyridium for 2 days to see if this improves polyuria
-Will perform bladder scan today to ensure he is not retaining urine
-Currently on 3% NS 250mL infusion, will recheck BMP following completion to monitor hyponatremia
-Will continue to monitor BMP
Anemia of chronic disease
-Hemoglobin 11.0 on admission
-No current signs of active bleed
-Continue to monitor
Benign Prostatic Hypertrophy
-Continue Dutasteride-Tamsulosin.
Gastroesophageal reflux disease.
-Continue PPI.
Essential hypertension
-BP today increased compared to baseline reported of 120-127 systolic
-Continue Irbesartan
-ADDED PRN hydralazine for SBP >160
Hyperlipidemia.
-Continue Statin
Ex-smoker
Anticipated Discharge: 24 - 48 hours
Subjective/Interval History
-
Date of Service: July 24, 2025
Patient was sitting comfortably in his room when I arrived in his chair. He states that he had weakness, lightheadedness and dizziness prior to his admission, but these have all resolved now. His only current complaint is that he is still urinating
frequently and that he had poor sleep attributed to being in the hospital. He reports urinating 3-4 times this AM so far. He is concerned that his blood pressure is elevated, as he checks his BP at home and it is normally 120-127 systolic.
Objective Data
-
Labs:
Laboratory Results
07/23/25 07/24/25
19:15 05:11
WBC 6.2
Hgb 10.5 L
Hct 30.3 L
Plt Count 339 D
Sodium 123 L 124 L
Potassium 4.5 4.3
Chloride 90 L 92 L
Carbon Dioxide 28 23
BUN 9 9
Creatinine 0.5 L 0.5 L
Glucose 101 H 86
Calcium 9.6 9.3
Total Bilirubin 1.1
AST 41
ALT 35
Alkaline Phosphatase 64
Vital Signs:
Vital Signs
Temp Pulse Resp BP Pulse Ox
97.6 F 56 14 145/68 96
07/23/25 23:00 07/23/25 23:00 07/23/25 23:00 07/23/25 23:00 07/23/25 23:00
I&O
07/23/25 07/24/25 07/25/25
06:59 06:59 06:59
Intake Total 240 / 240
Balance 240 / 240
Review of Systems
-
History Source: Patient
Constitutional: Denies Fever, Fatigue, Chills or Weakness
Respiratory: Denies Cough or Trouble Breathing
Cardiac: Denies Chest Pain
Abdomen/GI: Denies Abdominal Pain, Nausea, Vomiting, Diarrhea or Constipated
Genitourinary: Reports Frequency
Neuro: Denies Dizzy, Headache or Weakness
Physical Exam
-
General: Well Developed, Well Nourished, No Apparent Distress and Comfortable
HEENT: Normocephalic and Atraumatic
Respiratory: Clear to Auscultation
Cardiac: Regular Rhythm and S1/S2
Skin: Warm and Dry
Neuro: Awake, Alert and Oriented
Psych: Calm
[2025-07-24] MEDS: LIPITOR 10 MG PO (08:58)
[2025-07-24] MEDS: PROTONIX 40 MG PO ×2 (08:58→21:12)
[2025-07-24] MEDS: HIPREX 1 GRAM PO ×2 (08:59→21:13)
[2025-07-24] MEDS: FLOMAX 0.4 MG PO (09:00)
[2025-07-24] MEDS: OCUVITE SOFTGEL 1 CAP PO (09:00)
[2025-07-24] MEDS: NEURONTIN 100 MG PO ×2 (09:00→21:13)
[2025-07-24] MEDS: PROSCAR 5 MG PO (09:00)
[2025-07-24] MEDS: SODIUM CHLORIDE 3% 250 IV (09:23)
[2025-07-24 10:07] VITALS: BP 145/74; PULSE 75
[2025-07-24 11:06] LABS: Cortisol, Random 12.3 ug/dl
[2025-07-24 11:53] VITALS: BMI 33.5
[2025-07-24 14:13] LABS: Blood Urea Nitrogen 9 mg/dl (9-20); Calcium 9.4 mg/dl (8.4-10.2); Carbon Dioxide 25 mmol/L (22-30); Chloride 92 mmol/L (98-107); Estimated Creatinine Clearance 109 ml/min; Glucose 94 mg/dl (70-99); Potassium 4.4 mmol/L (3.5-5.1); Sodium 125 mmol/L (135-145); eGFR > 60.00
[2025-07-24 15:00] VITALS: BP 94/48
[2025-07-24 17:21] VITALS: BP 126/72
[2025-07-24] MEDS: LOVENOX 40 MG SC (17:22)
[2025-07-24 18:26] LABS: Blood Urea Nitrogen 9 mg/dl (9-20); Calcium 9.1 mg/dl (8.4-10.2); Carbon Dioxide 25 mmol/L (22-30); Chloride 94 mmol/L (98-107); Estimated Creatinine Clearance 109 ml/min; Glucose 111 mg/dl (70-99); Potassium 4.4 mmol/L (3.5-5.1); Sodium 125 mmol/L (135-145); eGFR > 60.00
[2025-07-24 19:00] VITALS: BP 137/62
[2025-07-24] MEDS: AVAPRO 150 MG PO (21:13)
[2025-07-24 23:00] VITALS: BP 144/74
[2025-07-25] VITALS (9 sets, daily range): BP systolic 90–141; BP diastolic 56–72; PULSE 67–85; O2SAT 95
[2025-07-25 00:14] LABS: Blood Urea Nitrogen 10 mg/dl (9-20); Calcium 9.2 mg/dl (8.4-10.2); Carbon Dioxide 26 mmol/L (22-30); Chloride 94 mmol/L (98-107); Estimated Creatinine Clearance 109 ml/min; Glucose 93 mg/dl (70-99); Potassium 4.2 mmol/L (3.5-5.1); Sodium 123 mmol/L (135-145); eGFR > 60.00
[2025-07-25] MEDS: MELATONIN 5 MG PO ×2 (02:07→22:32)
[2025-07-25 06:08] LABS: Hematocrit 30.4 % (39.0-52.0); Hemoglobin 10.7 g/dL (13.0-18.0); Mean Corp Hgb Conc. 35.2 g/dL (33.0-37.0); Mean Corpuscular Volume 86.6 fL (80.0-94.0); Platelet Count 315 10^3/uL (130-400); Red Cell Dist. Width 11.9 % (11.5-14.5)
[2025-07-25 06:29] LABS: Blood Urea Nitrogen 8 mg/dl (9-20); Calcium 9.0 mg/dl (8.4-10.2); Carbon Dioxide 26 mmol/L (22-30); Chloride 96 mmol/L (98-107); Estimated Creatinine Clearance 109 ml/min; Glucose 86 mg/dl (70-99); Potassium 4.0 mmol/L (3.5-5.1); Sodium 128 mmol/L (135-145); eGFR > 60.00
--- NOTE | 2025-07-25 07:51 | W.PN.HOSP.TC ---
Addendum entered and electronically signed by Murray Simon MD 07/25/25 13:56:
80-year-old with lightheadedness fatigue and weakness and off balance
CVS: S1-S2 normal
Chest: CTA B/L
Abdomen: Soft, NT / Bowel sounds present
Extremities: No edema, normal pulses
# Symptomatic hyponatremia
Likely secondary to excessive fluid intake
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
3% saline as symptomatic
Sodium better
20 mg lasix today if not orthostatic
Normal TSH
Also bladder scan noted urine retention which could have contributed. Continue BS
# Chronic anemia-hemoglobin to be monitored
# Hypertension-on irbesartan as outpatient. BP is on the low side.
# Hyperlipidemia-continue statin
# GERD/hiatal hernia-continue PPI
# Scoliosis/spinal stenosis/osteoarthritis-continue gabapentin
# Diverticulosis
# Enlarged prostate-continue dutasteride/tamsulosin. Bladder scan and straight cath
# Anxiety on lorazepam 0.5 mg 3 times daily as needed for anxiety as outpatient. May need to be slowly weaned
# History of GIST tumor surgery 2006
# Ex-smoker
# DVT prophylaxis-Lovenox
# CODE STATUS-full code
Part of this note was created using voice recognition system. Occasional wrong word or��sound alike� substitutions may have inadvertently occurred due to the inherent limitations of voice recognition software. If noted kindly bring it to my
attention for correction.
Original Note:
Today's Communication/Plan
-
Orthostatic vital signs
Possibly Lasix based on above
Assessment / Plan
Assessment / Plan
Assessment:
This is an 80 y/o male with pmhx of UTI on multiple antibiotic therapies with dizziness and weakness who was found to have a sodium of 123 in the ED.
Plan:
Symptomatic Hyponatremia
-Sodium 123 on admission
-Likely 2/2 to excessive fluid intake
-Serum osmolality: 260
-Urine osmolality: 472
-Urine sodium: 89
-S/p 250mL 3% NS, sodium clare to 128
-Continue fluid restriction
-Continue Pyridium for 2 days total course to see if this improves polyuria
-Will obtain orthostatic vital signs today. If no orthostasis, will give 20mg IV Lasix. If BP is soft, consider 20mg PO Lasix
-Continue to monitor BMP
Anemia of chronic disease
-Hemoglobin 11.0 on admission
-No current signs of active bleed
-Continue to monitor
Benign Prostatic Hypertrophy
-Continue Dutasteride-Tamsulosin.
Gastroesophageal reflux disease.
-Continue PPI.
Essential hypertension
Dizziness- Resolved
-Continue Irbesartan
-Continue PRN hydralazine for SBP >160
-Orthostatic vital signs today
Hyperlipidemia.
-Continue Statin
Ex-smoker
Anticipated Discharge: 24 - 48 hours
Subjective/Interval History
-
Date of Service: July 25, 2025
Patient was resting on the side of his bed when I arrived. He had experienced some sensations of feeling off yesterday with hypotension, but this had resolved spontaneously with laying down. He has not had any recurrence since. He reports 3-4
urinations today so far this morning.
Objective Data
-
Labs:
Laboratory Results
07/24/25 07/25/25
23:34 05:40
WBC 7.2
Hgb 10.7 L
Hct 30.4 L
Plt Count 315
Sodium 123 L 128 L
Potassium 4.2 4.0
Chloride 94 L 96 L
Carbon Dioxide 26 26
BUN 10 8 L
Creatinine 0.6 L 0.6 L
Glucose 93 86
Calcium 9.2 9.0
Vital Signs:
Vital Signs
Temp Pulse Resp BP Pulse Ox
98.0 F 53 16 141/56 97
07/25/25 03:00 07/25/25 03:00 07/25/25 03:00 07/25/25 03:00 07/25/25 03:00
I&O
07/24/25 07/25/25 07/26/25
06:59 06:59 06:59
Intake Total 1020 / 1020
Output Total 600 / 600
Balance 420 / 420
Review of Systems
-
History Source: Patient
Constitutional: Denies Fever, Fatigue or Chills
Respiratory: Denies Cough or Trouble Breathing
Cardiac: Denies Chest Pain
Abdomen/GI: Denies Abdominal Pain, Nausea, Vomiting, Diarrhea or Constipated
Genitourinary: Reports Frequency (3-4 times this morning)
Neuro: Denies Dizzy, Headache, Weakness or Lightheadedness
Physical Exam
-
General: Well Developed, Well Nourished, No Apparent Distress and Comfortable
HEENT: Normocephalic and Atraumatic
Respiratory: Clear to Auscultation
Cardiac: Regular Rhythm and S1/S2
Skin: Warm and Dry
Neuro: Awake, Alert and Oriented
Psych: Calm
[2025-07-25] MEDS: PROSCAR 5 MG PO (08:39)
[2025-07-25] MEDS: HIPREX 1 GRAM PO ×2 (08:39→20:23)
[2025-07-25] MEDS: OCUVITE SOFTGEL 1 CAP PO (08:39)
[2025-07-25] MEDS: PROTONIX 40 MG PO ×2 (08:39→20:24)
[2025-07-25] MEDS: LIPITOR 10 MG PO (08:39)
[2025-07-25] MEDS: NEURONTIN 100 MG PO ×2 (08:39→20:24)
[2025-07-25] MEDS: FLOMAX 0.4 MG PO (08:40)
--- NOTE | 2025-07-25 14:48 | CM ---
Addendum entered by Dayana Barron 07/25/25 16:10:
IMM reviewed with patient, copy provided and signed copy placed in chart.
Rogelio is , has a female friend who is a veterinary technician assistant for him since his ; they do not live together, but enjoy each others' company.
Original Note:
SURESH met with Alexys to complete IA. He lives alone in a 2 story home with 3 entry steps through the garage. He uses a cane as needed for balance.
Alexys is anxious to return home and identifies no needs at discharge.
Plan: Discharge to home with no needs.
[2025-07-25] MEDS: TYLENOL 650 MG PO (16:47)
[2025-07-25] MEDS: LOVENOX 40 MG SC (16:48)
[2025-07-25] MEDS: AVAPRO 150 MG PO (20:25)
[2025-07-26 03:00] VITALS: BP 137/54
[2025-07-26 06:01] LABS: Hematocrit 30.7 % (39.0-52.0); Hemoglobin 10.5 g/dL (13.0-18.0); Mean Corp Hgb Conc. 34.2 g/dL (33.0-37.0); Mean Corpuscular Volume 86.7 fL (80.0-94.0); Platelet Count 313 10^3/uL (130-400); Red Cell Dist. Width 12.2 % (11.5-14.5)
[2025-07-26 06:14] LABS: Blood Urea Nitrogen 10 mg/dl (9-20); Calcium 9.3 mg/dl (8.4-10.2); Carbon Dioxide 26 mmol/L (22-30); Chloride 97 mmol/L (98-107); Estimated Creatinine Clearance 109 ml/min; Glucose 88 mg/dl (70-99); Potassium 4.1 mmol/L (3.5-5.1); Sodium 130 mmol/L (135-145); eGFR > 60.00
--- NOTE | 2025-07-26 07:16 | W.PN.HOSP.TC ---
Addendum entered and electronically signed by Murray Simon MD 07/26/25 14:50:
Patient was seen earlier and examined with the resident. Agree with plan of care formulated together, he was feeling better.
Sodium slowly improving
Exam without any abnormality
Discussed about fluid restriction and repeat sodium to be done on Wednesday.
If it is low may consider sodium chloride tablets at that time.
I called Dr. Dickson's office to get him an appointment he can be seen on Wednesday and also urology office will see him on 07/30/2025.
Patient was given prescription for lab work
I will also check his CT of the head today if normal will discharge
D/W Son and updated
D/W
D/W RN
D/W Case management
More than 30 minutes spent in discharge including
Final examination of the patient
Summarizing hospital stay
Instructions for continuing care to all relevant caregivers
Preparation of discharge records, prescriptions, and referral forms
Original Note:
Today's Communication/Plan
-
Continue fluid restriction
Discharge planning
Assessment / Plan
Assessment / Plan
Assessment:
This is an 80 y/o male with pmhx of UTI on multiple antibiotic therapies with dizziness and weakness who was found to have a sodium of 123 in the ED.
Plan:
Symptomatic Hyponatremia, Now Asymptomatic
-Sodium 123 on admission
-Likely 2/2 to excessive fluid intake
-Serum osmolality: 260
-Urine osmolality: 472
-Urine sodium: 89
-S/p 250mL 3% NS on 07/24. Sodium today has risen to 130
-Continue fluid restriction upon discharge
-Continue to monitor BMP
Anemia of chronic disease
-Hemoglobin 11.0 on admission
-No current signs of active bleed
-Continue to monitor
Benign Prostatic Hypertrophy
Urine Retention
-Continue Dutasteride-Tamsulosin.
-Patient has thus far required straight cath x2 on 07/24 and again today on 07/26. He does not meet criteria for Yun catheterization at this point, as it appears intermittent
-Will contact his urologist's office, would recommend outpatient follow up earlier than September appointment
Orthostatic Hypotension
-Orthostatic vital signs as follows:
--Laying down: 139/66
--Sittin/64
--Standin/67
-Patient with episodes of dizziness such as after working with PT
-Encouraged sitting up slowly when rising, avoiding getting up too quickly, use of compression socks at home
Gastroesophageal reflux disease.
-Continue PPI.
Essential hypertension
Dizziness- Resolved
-Continue Irbesartan
-Continue PRN hydralazine for SBP >160
Hyperlipidemia.
-Continue Statin
Ex-smoker
Anticipated Discharge: Within 24 hours
Subjective/Interval History
-
Date of Service: July 26, 2025
Patient was sitting in his chair when I arrived. He has had no further episodes of dizziness yesterday after I had spoken to him, but this morning he reports using the bathroom and then being bladder scanned afterwards and having to be straight
cath'ed. He also had to be straight cath'ed on Wednesday for retained urine. He has previously seen a urologist outpatient and has an appointment scheduled in September with plans in the future to perform a TURP.
Objective Data
-
Labs:
Laboratory Results
07/26/25
05:06
WBC 7.1
Hgb 10.5 L
Hct 30.7 L
Plt Count 313
Sodium 130 L
Potassium 4.1
Chloride 97 L
Carbon Dioxide 26
BUN 10
Creatinine 0.6 L
Glucose 88
Calcium 9.3
Vital Signs:
Vital Signs
Temp Pulse Resp BP Pulse Ox
97.6 F 52 14 137/54 97
07/26/25 03:00 07/26/25 03:00 07/26/25 03:00 07/26/25 03:00 07/26/25 03:00
I&O
07/25/25 07/26/25 07/27/25
06:59 06:59 06:59
Intake Total 1020 / 1020 1400 / 1400
Output Total 600 / 600 400 / 400
Balance 420 / 420 1000 / 1000
Review of Systems
-
History Source: Patient
Constitutional: Denies Fever or Chills
Respiratory: Denies Cough or Trouble Breathing
Cardiac: Denies Chest Pain
Abdomen/GI: Denies Abdominal Pain, Nausea, Vomiting, Diarrhea or Constipated
Neuro: Denies Dizzy, Weakness or Lightheadedness
Endocrine: Denies Polydipsia
[2025-07-26] MEDS: PROTONIX 40 MG PO (07:36)
[2025-07-26] MEDS: HIPREX 1 GRAM PO (07:36)
[2025-07-26] MEDS: FLOMAX 0.4 MG PO (07:36)
[2025-07-26] MEDS: LIPITOR 10 MG PO (07:37)
[2025-07-26] MEDS: OCUVITE SOFTGEL 1 CAP PO (07:37)
[2025-07-26] MEDS: PROSCAR 5 MG PO (07:37)
[2025-07-26] MEDS: NEURONTIN 100 MG PO (07:37)
[2025-07-26 08:10] VITALS: BP 137/68
[2025-07-26 11:09] VITALS: BP 103/57
--- NOTE | 2025-07-26 11:29 | W.DCSUMMARY ---
Discharge Summary
Discharge Data
Date of Admission: 07/23/25
Date of Discharge: 07/26/25
-
Pending Results: No
Hospital Course
Discharging Physician : Dr. Simon
Disposition : Good
Primary care physician : Dr. Dickson
Principal Discharge diagnosis : Symptomatic Hyponatremia
Chronic Discharge diagnosis :
Anemia of Chronic Disease, Benign Prostatic Hypertrophy, Urine Retention, Orthostatic Hypotension, GERD, Essential Hypertension, Hyperlipidemia
Hospital Course : This is an 80 y/o male with pmhx of essential hypertension, BPH, Hyperlipidemia, chronic anemia who presented to the ED on 07/23/2025. He had been diagnosed with a UTI 1 month ago and and had been on antibiotic therapy with 3
different antibiotics (Cipro, Bactrim). He finished these antibiotics on 07/20/2025, at which time he was started on hippurate. He had been consuming significantly more fluid than normal while on these antibiotics, and had started to feel
lightheaded, fatigued and weak.
In the ED his BP was elevated at 162/84. His sodium was 123. Urinalysis showed no sign of infection. He was admitted to the hospital on a fluid restriction, but on 07/24 his sodium had only increased to 124 so he was started on 250mL of 3% NS. He
also began to experience intermittent episodes of dizziness which were self limiting and resolved when laying down. Orthostatic vital signs revealed orthostatic hypotension. He required two episodes of straight catheterization for urinary retention,
once on 07/24 (600mL) and once on 07/26 (400mL). His sodium continued to improve with fluid restriction until it reached 130 on 07/26. CT scan of the head on that same day showed no evidence of acute intracranial abnormality.He was found to be
medically stable and discharged to home. He was instructed to follow up with his PCP in less than one week, and complete a BMP in 4-5 days. He was also encouraged to follow up with his urologist.
Important imaging findings :
Chest X-ray 07/25: No acute disease of the chest. Moderate elevation of the right hemidiaphragm. Stable
CT Chest 07/26: No evidence of acute intracranial abnormality.
Procedure findings : N/a
Discharge Plan
-
Patient Disposition: Home (Routine Discharge)
Discharge Diagnosis/Procedures: Symptomatic Hyponatremia
Anemia of Chronic Disease
Benign Prostatic Hypertrophy
Urine Retention
Orthostatic Hypotension
GERD
Essential Hypertension
Hyperlipidemia
Condition: Good
Diet: Regular and Other diet
Additional Diets: Restrict fluid intake to 40oz or 1200mL
Activity: No restrictions and As tolerated
Driving Restrictions: As prior to admission
Bathing Restrictions: None
Blood Work: BMP in 1 week
Specialty Instructions: Weigh Daily- Call MD for wt gain/loss 3 lbs overnight/5 lbs in 1 week
Activity Restrictions/Additional Instructions:
Follow-up with your primary physician for workup of weight loss. This is important.
Referrals:
Bladimir Dickson MD [Family Provider, Internal Medicine] - 07/31/25
Referral Note: You are given an appointment for Wednesday. Please call office for time
Kyle Cutler Jr., MD [Active, Urology] - 07/30/25 1:15 pm
Additional Discharge Medication Instructions: We recommend you follow up with your primary care physician in less than 1 week. Please complete a Basic Metabolic Panel on Wednesday monitor your sodium levels. Your PCP will receive the results. The
normal range of sodium is 135-145.
We recommend you follow up with your urologist sooner than your scheduled September appointment as you did experience some episodes of retaining urine during this hospitalization. Please contact their office. We will also be reaching out to their
office to recommend earlier outpatient follow up.
You may resume taking your home mediations upon discharge as noted below. We do recommend you follow up with your primary care physician about ultimately stopping Lorazepam 0.5mg as this medication may contribute to dizziness and falls.
Prescriptions:
Continued
pantoprazole 40 MG tablet,delayed release (DR/EC)
40 mg PO BID
lovastatin 20 MG tablet
20 mg PO DAILY
dutasteride-tamsulosin 0.5-0.4 mg Capsule, Er Multiphase 24 Hr
1 cap PO DAILY
methenamine hippurate 1 gram Tablet
1 g PO BID
lorazepam 0.5 mg Tablet
0.5 mg PO TIDPRN PRN (Reason: anxiety)
gabapentin 100 mg Capsule
100 mg PO BID
PreserVision AREDS 2,148 mcg-113 mg-45 mg-17.4mg Tablet
1 tab PO DAILY
sennosides [senna] 8.6 mg tablet
8.6 mg PO DAILYPRN PRN (Reason: constipation)
irbesartan 150 mg tablet
112.5 mg PO HS
Discharge Orders:
Discharge Patient (As Directed); Ordered 07/26/25
Ordered By: Murray Simon
Discharge Date and Time
Print Language: MALDIVIAN
--- NOTE | 2025-07-26 12:20 | CM ---
CM met with Alexys today; he is anxious to return home. His son will drive him home at discharge.
Therapies recommend outpatient therapy which CM discussed with him this morning. Pt is willing to go to outpatient therapy and will go to a place that is closer to home, although he acknowledges that he has been in outpatient therapy several times
and does exercise at home on a daily basis.
Plan: CM requested Rx for outpatient therapy based on recommendation of therapies. Discharge to home pending discharge order; son will transport home.
[2025-07-26] MEDS: ATIVAN 0.5 MG PO (13:51)
[2025-07-26 15:51] VITALS: BP 110/62
[2025-07-26] MEDS: FLUZONE HIGH-DOSE 2025-26 0.5 ML IM (18:05)
== END 2025-07-26 18:42 | disposition home or self-care (01) | DRG 312 ==
LOC: 3 WEST ACU 20:46
PROVIDERS: Emergency Medicine; Physician Assistant; Registered Nurse; ADMITTING PHYSICIAN Hospitalist; ATTENDING PHYSICIAN Hospitalist; EMERGENCY PHYSICIAN Student in an Organized Health Care Education/Training Program; FAMILY PHYSICIAN Internal Medicine Geriatric Medicine
PROC: 3E02340 Introduction of Influenza Vaccine into Muscle, Percutaneous Approach (ICD-10-PCS; 2025-07-26)
DX: I95.1 Orthostatic hypotension (principal); E87.1 Hypo-osmolality and hyponatremia; Z87.891 Personal history of nicotine dependence; I10 Essential (primary) hypertension; K21.9 Gastro-esophageal reflux disease without esophagitis; K57.30 Diverticulosis of large intestine without perforation or abscess without bleeding; D63.8 Anemia in other chronic diseases classified elsewhere; N40.0 Benign prostatic hyperplasia without lower urinary tract symptoms; Z23 Encounter for immunization
CPT/HCPCS: 70450; 71046; 80048; 80053; 81003; 81015; 82533; 83690; 83930; 83935; 84300; 84443; 85025; 85027; 87086; 90662; 93005; 97116; 97162; 97166; 99285; G0008

== ENCOUNTER → 2025-07-30 08:21 | Outpatient (REF) | payer OTHER, SELFPAY ==
[2025-07-30 10:09] LABS: Blood Urea Nitrogen 19 mg/dl (9-20); Calcium 9.4 mg/dl (8.4-10.2); Carbon Dioxide 25 mmol/L (22-30); Chloride 106 mmol/L (98-107); Glucose 101 mg/dl (70-99); Potassium 4.0 mmol/L (3.5-5.1); Sodium 139 mmol/L (135-145); eGFR > 60.00
== END ==
LOC: REG 08:21
PROVIDERS: FAMILY PHYSICIAN Internal Medicine Geriatric Medicine
DX: E78.2 Mixed hyperlipidemia (principal)
CPT/HCPCS: 36415; 80048

== ENCOUNTER 2025-08-01 05:28 | Emergency (ER) | payer OTHER, SELFPAY ==
[2025-08-01 05:34] VITALS: BP 139/93
--- NOTE | 2025-08-01 06:19 | ED.GENMED ---
History of Present Illness
General
Chief Complaint: Blood Pressure Problem
Time Seen by Provider: 08/01/25 06:04
History of Present Illness
History of Present Illness:
80-year-old male presents to the emergency department for evaluation of heart palpitations that began late last night. He denies any chest pain or shortness of breath. [place] as though his heart rate was elevated. 80-year-old male presents to the
emergency department for evaluation of heart palpitations that began late last night. He denies any chest pain or shortness of breath. [place] as though his heart rate was elevated. Was seen in this emergency department in May for similar
complaint at which time no cardiac arrhythmia was found. He does have a follow-up with cardiology scheduled in approximately 2 weeks. No fevers or chills. Recently admitted to the hospital due to acute hyponatremia, had outpatient labs 2 days ago
that showed improvement in sodium levels.
Past History
Past History
ED Past Medical History: GERD, HTN, Hypercholesterolemia, Other (Osteoarthritis, BPH, spinal stenosis, right upper lobe lung abscess 2009) and Other (anemia, diverticulosis)
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
Social History
Tobacco: Former smoker (Quit 2006)
Alcohol: Occasional
Personal:
Living: alone
Employment: Retired
Family History
Family History: Diabetes and CAD
Review of Systems
Review of Systems
Allergies reviewed?: Yes
All Other Systems: ROS reviewed and negative except as documented in HPI and ROS
Phy Exam
Physical Exam
Physical Exam:
GEN: Well appearing, NAD, WDWN
HEENT: Oral mucosa moist, no scleral icterus
Cardiac: Irregularly irregular rhythm, controlled rate, no murmur
Lung: No respiratory distress, no tachypnea, lungs clear to auscultation bilaterally
MSK: No gross deformity or injuries, no pedal edema
Skin: Good color, no pallor or jaundice, no rashes
Neuro: AO x3, moves all extremities freely
Psych: Calm, cooperative
Course
Orders/Labs/Results
Orders:
Orders
08/01/25 06:09
EKG [Electrocardiogram (*1)] Urgent
Reason for Study: Atrial Fibrillation
EKG- Treatment ONCE
08/01/25 06:30
Complete Blood Count/No Diff Urgent
Comprehensive Metabolic Panel Urgent
Magnesium Urgent
TSH Urgent
Abnormal Lab Results
08/01/25
06:30
RBC 3.23 L 10^6/uL
(4.70-6.10)
Hgb 9.6 L g/dL
(13.0-18.0)
Hct 28.5 L %
(39.0-52.0)
Chloride 108 H mmol/L
(98-107)
Creatinine 0.6 L mg/dL
(0.7-1.3)
08/01/25 06:30
08/01/25 06:30
Vital Signs
Initial and Last Documented VS:
Initial Vital Signs
Temp Pulse Resp BP Pulse Ox
97.9 F 70 20 139/93 94
08/01/25 05:34 08/01/25 05:34 08/01/25 05:34 08/01/25 05:34 08/01/25 05:34
Last Documented Vital Signs
Temp Pulse Resp BP Pulse Ox
97.9 F 85 19 139/93 97
08/01/25 05:34 08/01/25 06:45 08/01/25 06:45 08/01/25 05:34 08/01/25 06:45
MDM/Problems Addressed
MDM/Problems Addressed:
Patient noted to be in new onset atrial fibrillation with controlled rates today. He has no current complaints and is suitable for discharge to home. Due to his prior history of orthostatic hypotension and use of dutasteride tamsulosin in addition
to antihypertensives, we will decrease his irbesartan dosage in order to accommodate for addition of metoprolol. He will be started on anticoagulants. He is noted to be increasingly anemic over the past year however with no signs of GI bleeding
and no uremia. He is advised to have his hemoglobin rechecked within the next 1 to 2 weeks by his primary care physician while awaiting cardiology evaluation early next month. I did communicate these findings with his primary care physician who
will help to make arrangements for close follow-up. Educated patient on signs and symptoms of occult GI bleeding that would warrant emergent follow-up
Comment
Comment:
EKG independently interpreted by me reveals a rate controlled atrial fibrillation with no ST changes concerning for ischemia
*Pulse Oximetry
SaO2: 94
Oxygen Mode of Delivery: Room air
Patient hypoxic: no
*Critical Care Note
Total Time (30-74mins, 75-104mins- exclusive of procedures): Not Applicable
ED Attending Note
-
Portions of this chart may have been created with voice recognition software.� Occasional wrong word or��sound alike� substitutions may have occurred due to the inherent limitations of voice recognition software.
Discharge Plan
Departure
Patient Disposition: Home (Routine Discharge)
Date of Disposition: 08/01/25
Time of Disposition: 07:08
Patient with high blood pressure during this ER visit?: Yes
Discharge Problem:
Atrial fibrillation, new onset
Instructions: How to take anticoagulants safely, Atrial fibrillation (DC)
Prescriptions:
New
irbesartan 75 mg tablet
75 mg PO HS Qty: 30 0RF
metoprolol succinate 25 mg tablet extended release 24 hr
25 mg PO DAILY Qty: 30 0RF
Eliquis 5 mg tablet
5 mg PO BID Qty: 60 0RF
Discontinued
irbesartan 150 mg tablet
112.5 mg PO HS
No Action
pantoprazole 40 MG tablet,delayed release (DR/EC)
40 mg PO BID
lovastatin 20 MG tablet
20 mg PO DAILY
dutasteride-tamsulosin 0.5-0.4 mg Capsule, Er Multiphase 24 Hr
1 cap PO DAILY
methenamine hippurate 1 gram Tablet
1 g PO BID
lorazepam 0.5 mg Tablet
0.5 mg PO TIDPRN PRN (Reason: anxiety)
gabapentin 100 mg Capsule
100 mg PO BID
PreserVision AREDS 2,148 mcg-113 mg-45 mg-17.4mg Tablet
1 tab PO DAILY
sennosides [senna] 8.6 mg tablet
8.6 mg PO DAILYPRN PRN (Reason: constipation)
Referrals:
Bladimir Dickson MD [Family Provider, Internal Medicine]
Activity Restrictions/Additional Instructions:
Stop your current irbesartan and begin taking 75mg nightly
Begin metoprolol 25mg daily and Eliquis twice daily (blood thinner)
Your hemoglobin counts have been trending down since earlier this year. This may suggest iron deficiency. Please have your hemoglobin rechecked within 1 week of starting the Eliquis by your primary doctor
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
Interventions
Interventions:
*Risk Screen - Suicide Last Done: 08/01/25 05:34
*General Assessment Last Done: 08/01/25 05:34
*Neglect/Abuse Screening Last Done: 08/01/25 05:34
*ED- Fall Risk Assessment Last Done: 08/01/25 05:34
*ED COVID-19 Vaccine History Last Done: 08/01/25 05:34
*ED Influenza Vaccine History Last Done: 08/01/25 05:34
ED- Cardiac Assessment Last Done: 08/01/25 06:41
ED- Neurological Assessment Last Done: 08/01/25 06:41
ED- Pulmonary Assessment Last Done: 08/01/25 06:41
Discharge Date and Time
Print Language: PASHTO
[2025-08-01 06:37] LABS: Hematocrit 28.5 % (39.0-52.0); Hemoglobin 9.6 g/dL (13.0-18.0); Mean Corp Hgb Conc. 33.7 g/dL (33.0-37.0); Mean Corpuscular Volume 88.2 fL (80.0-94.0); Platelet Count 276 10^3/uL (130-400); Red Cell Dist. Width 12.9 % (11.5-14.5)
[2025-08-01 07:03] LABS: ALT (SGPT) 28 U/L (0-50); AST (SGOT) 33 U/L (17-59); Albumin 4.1 g/dl (3.5-5.0); Alkaline Phosphatase 48 U/L (38-126); Blood Urea Nitrogen 19 mg/dl (9-20); Calcium 9.1 mg/dl (8.4-10.2); Carbon Dioxide 25 mmol/L (22-30); Chloride 108 mmol/L (98-107); Glucose 99 mg/dl (70-99); Magnesium 1.8 mg/dl (1.6-2.3); Potassium 3.9 mmol/L (3.5-5.1); Sodium 140 mmol/L (135-145); Total Protein 6.6 g/dl (6.3-8.2); eGFR > 60.00
[2025-08-01 07:40] LABS: TSH 2.24 uIU/ml (0.47-4.68)
== END 2025-08-01 08:15 | disposition home or self-care (01) ==
LOC: EMR 05:28
PROVIDERS: Physician Assistant; EMERGENCY PHYSICIAN Emergency Medicine; FAMILY PHYSICIAN Internal Medicine Geriatric Medicine
DX: I48.91 Unspecified atrial fibrillation (principal); K21.9 Gastro-esophageal reflux disease without esophagitis; I10 Essential (primary) hypertension; E78.00 Pure hypercholesterolemia, unspecified; M19.90 Unspecified osteoarthritis, unspecified site; D64.9 Anemia, unspecified; N40.0 Benign prostatic hyperplasia without lower urinary tract symptoms; Z82.49 Family history of ischemic heart disease and other diseases of the circulatory system; Z83.3 Family history of diabetes mellitus; Z87.891 Personal history of nicotine dependence; Z96.642 Presence of left artificial hip joint; Z96.651 Presence of right artificial knee joint
CPT/HCPCS: 99283; 80053; 83735; 84443; 85027; 93005

== ENCOUNTER → 2025-08-07 09:44 | Outpatient (REF) | payer OTHER, SELFPAY ==
[2025-08-07 11:01] LABS: Hematocrit 30.3 % (39.0-52.0); Hemoglobin 10.3 g/dL (13.0-18.0); Mean Corp Hgb Conc. 34.0 g/dL (33.0-37.0); Mean Corpuscular Volume 91.5 fL (80.0-94.0); Nucleated Red Blood Cells % 0 % (-); Platelet Count 308 10^3/uL (130-400); Red Cell Dist. Width 13.6 % (11.5-14.5)
== END ==
LOC: REG 09:44
PROVIDERS: ATTENDING PHYSICIAN Internal Medicine Geriatric Medicine
DX: I48.91 Unspecified atrial fibrillation (principal); I10 Essential (primary) hypertension
CPT/HCPCS: 36415; 85025

== ENCOUNTER → 2025-08-16 13:26 | Outpatient (REF) | payer OTHER, SELFPAY ==
[2025-08-16 13:53] LABS: Hematocrit 32.5 % (39.0-52.0); Hemoglobin 10.5 g/dL (13.0-18.0); Mean Corp Hgb Conc. 32.3 g/dL (33.0-37.0); Mean Corpuscular Volume 93.4 fL (80.0-94.0); Nucleated Red Blood Cells % 0 % (-); Platelet Count 284 10^3/uL (130-400); Red Cell Dist. Width 14.1 % (11.5-14.5)
[2025-08-16 14:14] LABS: ALT (SGPT) 28 U/L (0-50); AST (SGOT) 28 U/L (17-59); Albumin 4.4 g/dl (3.5-5.0); Alkaline Phosphatase 59 U/L (38-126); Blood Urea Nitrogen 13 mg/dl (9-20); Calcium 9.4 mg/dl (8.4-10.2); Carbon Dioxide 25 mmol/L (22-30); Chloride 103 mmol/L (98-107); Glucose 102 mg/dl (70-99); Iron 58 ug/dl (49-181); Potassium 4.1 mmol/L (3.5-5.1); Sodium 135 mmol/L (135-145); Total Protein 7.2 g/dl (6.3-8.2); eGFR > 60.00
[2025-08-16 14:24] LABS: Total Iron Binding Capacity 289 ug/dl (261-462)
[2025-08-16 15:35] LABS: Ferritin 141.0 ng/ml (17.9-464.0)
== END ==
LOC: REG 13:26
PROVIDERS: ATTENDING PHYSICIAN Internal Medicine Geriatric Medicine
DX: E78.2 Mixed hyperlipidemia (principal); I10 Essential (primary) hypertension; M25.562 Pain in left knee; M62.830 Muscle spasm of back; K21.9 Gastro-esophageal reflux disease without esophagitis; R97.20 Elevated prostate specific antigen [PSA]; D64.9 Anemia, unspecified; Z13.31 Encounter for screening for depression
CPT/HCPCS: 36415; 80053; 82728; 83540; 83550; 85025

== ENCOUNTER 2025-08-27 06:57 | Day surgery (SDC) | payer OTHER, SELFPAY ==
--- NOTE | 2025-08-27 09:01 | ITS.CL.CARDI ---
Fish Technologist - Cardioversion
Cardioversion
Procedure Report:
Date of Procedure: 08/27/25
Procedure: Cardioversion
Indication: Symptomatic atrial fibrillation
Performing Physician: Terra Heart DO [facility]
Technique: The patient was brought to the holding area. Signed informed consent was obtained. A time out was called and performed. The patient was anesthetized by the anesthesia service. Anticoagulation status was reviewed and appropriate. R2 pads
were placed anteriorly and posteriorly. A 200J synchronized biphasic shock restored normal sinus rhythm without significant bradycardia. There were no complications.
Conclusion: Uncomplicated cardioversion from atrial fibrillation to sinus rhythm.
Recommendation: Routine post cardioversion care. Continue [facility] anticoagulation.
== END 2025-08-27 09:02 | disposition home or self-care (01) ==
LOC: CATH 06:57
PROVIDERS: ATTENDING PHYSICIAN Internal Medicine Cardiovascular Disease; FAMILY PHYSICIAN Internal Medicine Geriatric Medicine; REFERRING PHYSICIAN Internal Medicine Cardiovascular Disease
DX: I48.91 Unspecified atrial fibrillation (principal); Z79.01 Long term (current) use of anticoagulants; Z79.899 Other long term (current) drug therapy; K22.70 Barrett's esophagus without dysplasia
CPT/HCPCS: 92960; 93005

== ENCOUNTER → 2025-08-28 09:53 | Outpatient (REF) | payer OTHER, SELFPAY | LOC: HWRCS 09:53 | PROVIDERS: ATTENDING PHYSICIAN Internal Medicine Cardiovascular Disease; FAMILY PHYSICIAN Internal Medicine Geriatric Medicine | DX: I48.91 Unspecified atrial fibrillation (principal) | CPT/HCPCS: 93306 ==

== ENCOUNTER → 2025-10-04 08:20 | Outpatient (REF) | payer OTHER, SELFPAY ==
[2025-10-04 10:24] LABS: Hematocrit 35.4 % (39.0-52.0); Hemoglobin 11.5 g/dL (13.0-18.0); Mean Corp Hgb Conc. 32.5 g/dL (33.0-37.0); Mean Corpuscular Volume 91.9 fL (80.0-94.0); Nucleated Red Blood Cells % 0 % (-); Platelet Count 247 10^3/uL (130-400); Red Cell Dist. Width 13.1 % (11.5-14.5)
[2025-10-04 11:52] LABS: ALT (SGPT) 30 U/L (0-50); AST (SGOT) 36 U/L (17-59); Albumin 4.4 g/dl (3.5-5.0); Alkaline Phosphatase 69 U/L (38-126); Blood Urea Nitrogen 14 mg/dl (9-20); Calcium 9.3 mg/dl (8.4-10.2); Carbon Dioxide 25 mmol/L (22-30); Chloride 103 mmol/L (98-107); Glucose 97 mg/dl (70-99); HDL Cholesterol 54 mg/dl; LDL Cholesterol, Calculated 66 mg/dl; Potassium 4.4 mmol/L (3.5-5.1); Sodium 137 mmol/L (135-145); Total Protein 7.5 g/dl (6.3-8.2); Very Low Density Lipoprotein 8 mg/dl (0-30); eGFR > 60.00
== END ==
LOC: REG 08:20
PROVIDERS: ATTENDING PHYSICIAN Internal Medicine Geriatric Medicine
DX: I10 Essential (primary) hypertension (principal); E78.2 Mixed hyperlipidemia; M25.562 Pain in left knee; M62.830 Muscle spasm of back; K21.9 Gastro-esophageal reflux disease without esophagitis; R97.20 Elevated prostate specific antigen [PSA]; D64.9 Anemia, unspecified; I95.1 Orthostatic hypotension; Z13.31 Encounter for screening for depression; I48.91 Unspecified atrial fibrillation
CPT/HCPCS: 36415; 80053; 80061; 85025